=== PATIENT | male | born 1975 | race Caucasian/White ===

== ENCOUNTER 2020-07-03 10:45 | Emergency (ER) | payer SELFPAY ==
[~2020-07-03] VITALS: Ht 177.8 cm; Wt 91.0 kg
[2020-07-03] MEDS ORDERED: ONDANSETRON HCL 4MG/2ML INJ IV STA (11:00)
[2020-07-03] MEDS ORDERED: MORPHINE SULFATE 4 MG/ML CPJ (NOT FOR IM USE) IV STA (11:00)
[2020-07-03] MEDS ORDERED: SODIUM CHLORIDE 0.9% 1,000 ML IV ONE (11:00)
[2020-07-03 11:25] LABS: BASOPHILS % 0.5 % (0.0-2.0); EOSINOPHILS % 1.4 % (0.0-5.0); HEMATOCRIT. 46.9 % (42.0-52.0); HEMOGLOBIN. 16.5 g/dL (14.0-18.0); LYMPHOCYTES % 33.7 % (20.0-50.0); MEAN CORPUSCULAR HEMOGLOBIN 30.4 pg (28.0-32.0); MEAN CORPUSCULAR VOLUME 86.3 fL (80.0-94.0); MEAN PLATELET VOLUME 8.5 fl (7.4-10.4); MONOCYTES % 5.7 % (2.0-8.0); NEUTROPHILS % 58.7 % (40.0-76.0); PLATELET 222 x1000/uL (130-400); RED BLOOD CELL COUNT 5.43 mill/uL (4.7-6.1); RED CELL DISTRIBUTION WIDTH 12.5 % (11.6-14.6)
[2020-07-03] MEDS ORDERED: MORPHINE SULFATE 4 MG/ML CPJ (NOT FOR IM USE) IV ONE (11:30)
[2020-07-03 11:34] LABS: CHLORIDE 104 mEq/L (98-107)
[2020-07-03] MEDS ORDERED: IOHEXOL-300 100 ML BOTTLE ONE (12:17)
[2020-07-03] MEDS ORDERED: KETOROLAC 30MG/ML VIAL IV ONE (12:45)
[2020-07-03 13:30] VITALS: BP 116/75
[2020-07-03] MEDS ORDERED: METH-773 MT (13:52)
[2020-07-03] MEDS ORDERED: IBUP-2030 MT (13:52)
== END 2020-07-03 14:37 | disposition home or self-care (01) ==
LOC: ER 10:45
DX: S39.81XA Other specified injuries of abdomen, initial encounter (principal); V49.49XA Driver injured in collision with other motor vehicles in traffic accident, initial encounter; Y93.89 Activity, other specified; Y92.89 Other specified places as the place of occurrence of the external cause; Y99.8 Other external cause status; M54.5 Low back pain; M25.561 Pain in right knee; E11.9 Type 2 diabetes mellitus without complications
CPT/HCPCS: 36415; 71045; 72125; 72131; 73562; 74177; 80053; 83690; 85025; 96361; 96374; 96375; 96376; 99285; J1885; J2270; J2405; J7030; Q9967